=== PATIENT | male | born 1980 | race Caucasian/White ===

== ENCOUNTER 2019-07-09 13:14 | Emergency (ER) | payer OTHER ==
[~2019-07-09] VITALS: Ht 165.1 cm; Wt 80.7 kg
[2019-07-09 13:21] VITALS: Ht 165.1 cm; Wt 80.7 kg
[2019-07-09 14:56] LABS: BASOPHIL % 0.3 % (0-2); PLATELET COUNT 284 x10^3mcL (130-400)
[2019-07-09 14:59] LABS: RED CELL DISTRIBUTION WIDTH 14.7 % (11.5-14.5)
[2019-07-09 15:17] LABS: CHLORIDE SERUM 104 mmol/L (98-107); CREATININE SERUM 0.8 mg/dL (0.7-1.3); GFR1 > 60 mL/min; GLUCOSE SERUM 99 mg/dL (74-106); SODIUM SERUM 140 mmol/L (136-145)
[2019-07-09 16:54] VITALS: BP 110/66
== END 2019-07-09 16:54 | disposition home or self-care (01) ==
LOC: ED 13:14
PROVIDERS: Emergency Medicine
DX: S30.810A Abrasion of lower back and pelvis, initial encounter (principal); L03.311 Cellulitis of abdominal wall; W01.198A Fall on same level from slipping, tripping and stumbling with subsequent striking against other object, initial encounter; Y93.89 Activity, other specified; Y92.89 Other specified places as the place of occurrence of the external cause; Y99.8 Other external cause status
CPT/HCPCS: 90715; J1885; J7030; Q9967